=== PATIENT | male | born 1970 | race Caucasian/White ===

== ENCOUNTER 2017-09-04 07:00 | Day surgery (SDC) | payer OTHER ==
[2017-08-31 17:00] VITALS: BMI 31.7
[2017-09-04] MEDS ORDERED: DEXAMETHASONE SOD PHOSPHATE/PF 10 MG/ML SDV ONE (08:30)
[2017-09-04] MEDS ORDERED: MIDAZOLAM HCL 2 MG/2 ML SINGLE DOSE VIAL ONE (08:30)
[2017-09-04] MEDS ORDERED: ROPIVACAINE HCL 0.5% 30ML VIAL ONE (08:30)
[2017-09-04] MEDS ORDERED: ceFAZolin SODIUM 1 GM VIAL ONE (09:14)
[2017-09-04] MEDS ORDERED: ONDANSETRON 4 MG/2 ML VIAL ONE ×2 (09:20→10:56)
[2017-09-04] MEDS ORDERED: DEXAMETHASONE SOD PHOSPHATE 4 MG/1 ML VIAL ONE ×2 (09:20→10:56)
[2017-09-04] MEDS ORDERED: ePHEDrine SULFATE 50 MG/1 ML AMPULE ONE (09:43)
[2017-09-04] MEDS ORDERED: ONDANSETRON 4 MG/2 ML VIAL IVPUSH PRN (10:20)
[2017-09-04] MEDS ORDERED: HYDROmorphone HCL CARPU-JECT 1 MG/1 ML DISP.SYRIN IVPUSH ONE (10:20)
[2017-09-04] MEDS ORDERED: oxyCODONE HCL 5 MG TABLET PO PRN (10:20)
[2017-09-04] MEDS: HYDROmorphone HCL CARPU-JECT 1 MG/1 ML DISP.SYRIN IVPUSH ONE ×2 (10:22→10:32)
[2017-09-04] MEDS ORDERED: LACTATED RINGERS SOLUTION 1,000 ML IV SCH (10:30)
[2017-09-04] MEDS ORDERED: LIDOCAINE HCL 2% 100 MG/5 ML DISP.SYRIN ONE (10:50)
[2017-09-04] MEDS ORDERED: KETOROLAC TROMETHAMINE 30 MG/1 ML VIAL ONE (11:09)
[2017-09-04 11:15] VITALS: TEMP 98.8
[2017-09-04] MEDS ORDERED: PROPOFOL 20 ML ONE (11:19)
[2017-09-04 12:05] VITALS: BP 140/82; PULSE 79
[2017-09-05] MEDS ORDERED: PATIENT'S OWN MEDICATION (NON-FORMULARY) (Finasteride [Finasteride] 1 MG) PO SCH (10:00)
--- NOTE | 2017-09-07 20:24 | OP ---
DATE OF OPERATION: 09/04/2017 PREOPERATIVE DIAGNOSIS: 1. Left shoulder rotator cuff tear. 2. Left shoulder impingement syndrome. 3. Left shoulder acromioclavicular joint deformity. 4. Left shoulder superior labral tear with anterior/posterior synovitis. POSTOPERATIVE DIAGNOSIS: 1. Left shoulder rotator cuff tear. 2. Left shoulder impingement syndrome. 3. Left shoulder acromioclavicular joint deformity. 4. Left shoulder superior labral tear with anterior/posterior synovitis. PROCEDURE: 1. Left shoulder arthroscopy with arthroscopic rotator cuff repair. 2. Left shoulder arthroscopy with subacromial decompression. 3. Left shoulder arthroscopy with resection of the distal clavicle, acromioclavicular joint. 4. Left shoulder arthroscopy with debridement/major. CPT CODES: 90050, 06658, 55574, 70441. SURGEON: Bubba Willett MD [employer] ADVOCATE: YAMILKA Ruiz FINDINGS: 1. Full thickness rotator cuff tear, supraspinatus. 2. Superior labral injury, anterior/posterior with type 1-2 extension to the biceps. 3. Posterior labral fraying. 4. Type 2 acromion with anterolateral spurring. 5. in the subacromial space. 6. Inferior spurs of the clavicle of the acromioclavicular joint. 7. Multiple loose bodies glenohumeral joint. 8. Glenohumeral synovitis. REPAIR TYPE: Two mattress sutures placed into the supraspinatus and secured to a bleeding bone bed using the Opus anchor technique. DESCRIPTION OF PROCEDURE: Informed consent was obtained. The patient was taken to the operating room where the upper extremity was prepped and draped in a sterile fashion. The shoulder was manipulated for a full range of motion. Posterior incision portal was made and directed to glenohumeral joint. Under direct visualization, an anterior incision and portal was made. Extensive synovitis, as well as chondral injuries throughout the glenohumeral joint were dbrided and removed. Any identified labral injuries, including superior labral tear, anterior and posterior, and anterior labrum torn portions were removed as well. Rotator cuff was visualized and noted to have full-thickness tear. The edges were debrided. Posterior incision portal was redirected to subacromial space where a lateral incision portal was made. Excessive and thickened scar tissue noted throughout the subacromial space, including bursal and scar tissue, were removed. The type 2 acromion was converted into a flattened type 1 using a alyce for subacromial decompression. Distal inferior spur at the distal clavicle was also dbrided with the use of accessory portal in the AC joint. The edges of the rotator cuff were identified. Sutures were placed into the rotator cuff and secured using anchors throughout the greater tuberosity. Prior to securing, a bleeding bed was made using a small alyce, creating a bleeding surface of the rotator cuff insertion. The shoulder was then drained. A single suture as placed on all portals and a sterile dressing was placed. The patient was transferred to the recovery room without complication. BUBBA WILLETT M.D. [id number]
--- NOTE | 2017-09-09 15:42 | PATH ---
Surgical Pathology Report Patient Name: WESTON POWER Med. Rec. #: [id number] /Age/Gender: 1970 (Age: 47) / M Account: [id number] Location: [facility] AMBULATORY Taken: 09/04/2017 Received: 09/04/2017 Reported: 09/09/2017 Physicians: Weston Galindo M.D. Specimen(s) Received LEFT SHOULDER SHAVINGS Clinical History Left shoulder rotator cuff repair Final Diagnosis SHOULDER, LEFT, ARTHROSCOPIC SHAVINGS: FIBROSYNOVIAL TISSUE, CARTILAGE, SCANT BONE AND SKELETAL MUSCLE. Electronically Signed Jina Pyle M.D. Gross Description Received in formalin, labeled "left shoulder shaving," is a 5.2 x 4.7 x 0.4 cm. aggregate of decker-yellow soft tissue fragments. A dental sales representative portion is submitted in one cassette. 09/08/201709/08/2017
== END 2017-09-04 12:10 | disposition home or self-care (01) ==
LOC: FASU 07:00
PROVIDERS: ATTEND Orthopaedic Surgery
PROC: 0RNK4ZZ Release Left Shoulder Joint, Percutaneous Endoscopic Approach (ICD-10-PCS; 2017-09-04)
PROC: 0PBB4ZZ Excision of Left Clavicle, Percutaneous Endoscopic Approach (ICD-10-PCS; 2017-09-04)
PROC: 0RBK4ZZ Excision of Left Shoulder Joint, Percutaneous Endoscopic Approach (ICD-10-PCS; 2017-09-04)
PROC: 0LB24ZZ Excision of Left Shoulder Tendon, Percutaneous Endoscopic Approach (ICD-10-PCS; principal; 2017-09-04 09:00)
DX: S43.422A Sprain of left rotator cuff capsule, initial encounter (principal); M75.42 Impingement syndrome of left shoulder; M24.112 Other articular cartilage disorders, left shoulder; M65.812 Other synovitis and tenosynovitis, left shoulder; X58.XXXA Exposure to other specified factors, initial encounter; Y93.9 Activity, unspecified; Y92.89 Other specified places as the place of occurrence of the external cause
CPT/HCPCS: 88304-TC; 94760